=== PATIENT | male | born 1945 | race Caucasian/White ===

== ENCOUNTER 2020-03-22 15:27 | Inpatient (IN) ==
[2020-03-22] MEDS ORDERED: PROMETHAZINE 25 MG/1 ML VIAL IM PRN (15:34)
[2020-03-22] MEDS ORDERED: ONDANSETRON 4 MG/2 ML VIAL IV PRN (15:34)
[2020-03-22] MEDS ORDERED: ACETAMINOPHEN 325 MG TABLET PO SCH (16:00)
[2020-03-22] MEDS: SODIUM CHLORIDE 0.9% 1,000 ML IV SCH (17:24)
[2020-03-22] MEDS: ACETAMINOPHEN 325 MG TABLET PO SCH (17:26)
[2020-03-22] MEDS: HYOSCYAMINE 0.125 MG TABLET PO SCH (20:57)
[2020-03-22] MEDS: PIPERACILLIN/TAZOBACTAM 3,375 MG in SODIUM CHLORIDE 0.9% 100 ML IV SCH (20:57)
[2020-03-22] MEDS: RIVAROXABAN 10 MG TABLET PO SCH (20:57)
[2020-03-22] MEDS: DOCUSATE SODIUM 100 MG CAPSULE PO SCH (20:58)
[2020-03-22] MEDS: TAMSULOSIN 0.4 MG CAPSULE PO SCH (20:58)
[2020-03-22] MEDS: GABAPENTIN 600 MG TABLET PO SCH (20:58)
[2020-03-22] MEDS: PHENAZOPYRIDINE 95 MG TABLET PO SCH (21:04)
[2020-03-23] MEDS: ACETAMINOPHEN 325 MG TABLET PO SCH ×4 (01:45→19:08)
[2020-03-23] MEDS: HYOSCYAMINE 0.125 MG TABLET PO SCH ×5 (03:52→23:10)
[2020-03-23] MEDS: PIPERACILLIN/TAZOBACTAM 3,375 MG in SODIUM CHLORIDE 0.9% 100 ML IV SCH ×3 (04:58→20:41)
[2020-03-23 06:10] LABS: Basophils % 0.2 % (0.0-0.8); Hematocrit 34.9 VOL% (42.0-52.0); Hemoglobin 12.4 GM/DL (14.0-18.0); Immature Granulocytes % 1.5 %; Immature Granulocytes Absolute 0.22 #; Lymphocytes # 1.4 10*3/uL (1.4-4.0); Lymphocytes % 9.1 % (21.2-54.2); Mean Corpuscular HGB Conc 35.5 GM/DL (32-36); Mean Corpuscular Volume 89.7 FL (87-102); Mean Platelet Volume 8.3 FL (9.6-12.0); Monocytes % 5.5 % (1.7-12.7); Neutrophils % 83.7 % (38.7-73.9); Platelet Count 236 T/CUMM (130-400); Red Blood Count 3.89 MC/CUMM (3.8-5.5); Red Cell Distribution Width 11.6 % (9.3-17.3)
[2020-03-23 06:31] LABS: Calcium 8.9 MG/DL (8.5-10.1); Osmolality,Calculated 260.7 MOS/KG (273-304)
[2020-03-23] MEDS: SODIUM CHLORIDE 0.9% 1,000 ML IV SCH ×2 (07:27→19:08)
[2020-03-23] MEDS ORDERED: TAMSULOSIN 0.4 MG CAPSULE PO SCH (09:00)
[2020-03-23] MEDS: PHENAZOPYRIDINE 95 MG TABLET PO SCH ×2 (10:06→18:10)
[2020-03-23] MEDS: LEVOFLOXACIN 500 MG TABLET PO SCH (10:07)
[2020-03-23] MEDS: TAMSULOSIN 0.4 MG CAPSULE PO SCH ×2 (10:07→20:42)
[2020-03-23] MEDS: PANTOPRAZOLE 40 MG TABLET PO SCH (10:07)
[2020-03-23] MEDS: DOCUSATE SODIUM 100 MG CAPSULE PO SCH ×2 (10:08→20:41)
[2020-03-23] MEDS: GABAPENTIN 600 MG TABLET PO SCH ×2 (10:09→20:41)
[2020-03-23] MEDS: RIVAROXABAN 10 MG TABLET PO SCH (20:41)
[2020-03-23] MEDS: LACTOBACILLUS ACIDOPHILUS/BULGARICUS CAPLET PO SCH (20:41)
[2020-03-24] MEDS: ACETAMINOPHEN 325 MG TABLET PO SCH ×4 (01:25→18:33)
[2020-03-24] MEDS: HYOSCYAMINE 0.125 MG TABLET PO SCH ×4 (05:29→21:47)
[2020-03-24] MEDS: PIPERACILLIN/TAZOBACTAM 3,375 MG in SODIUM CHLORIDE 0.9% 100 ML IV SCH ×3 (05:30→21:38)
[2020-03-24 06:02] LABS: Basophils # 0.1 10*3/uL (0.0-0.2); Basophils % 0.3 % (0.0-0.8); Eosinophils # 0.1 10*3/uL (0.0-0.87); Eosinophils % 0.7 % (0.00-10.9); Hematocrit 32.4 VOL% (42.0-52.0); Hemoglobin 11.3 GM/DL (14.0-18.0); Immature Granulocytes % 1.7 %; Immature Granulocytes Absolute 0.28 #; Lymphocytes # 1.5 10*3/uL (1.4-4.0); Lymphocytes % 9.3 % (21.2-54.2); Mean Corpuscular HGB Conc 34.9 GM/DL (32-36); Mean Corpuscular Volume 90.5 FL (87-102); Mean Platelet Volume 8.2 FL (9.6-12.0); Monocytes % 5.9 % (1.7-12.7); Neutrophils % 82.1 % (38.7-73.9); Platelet Count 223 T/CUMM (130-400); Red Blood Count 3.58 MC/CUMM (3.8-5.5); Red Cell Distribution Width 11.5 % (9.3-17.3); White Blood Count 16.1 T/CUMM (4-12)
[2020-03-24 06:42] LABS: Albumin 2.6 G/DL (3.4-5.0); Calcium 8.9 MG/DL (8.5-10.1); Osmolality,Calculated 257.8 MOS/KG (273-304); Total Protein 6.3 G/DL (6.4-8.3)
[2020-03-24] MEDS: PANTOPRAZOLE 40 MG TABLET PO SCH (09:39)
[2020-03-24] MEDS: GABAPENTIN 600 MG TABLET PO SCH ×2 (09:39→21:38)
[2020-03-24] MEDS: LEVOFLOXACIN 500 MG TABLET PO SCH (09:39)
[2020-03-24] MEDS: PHENAZOPYRIDINE 95 MG TABLET PO SCH ×2 (09:39→16:51)
[2020-03-24] MEDS: LACTOBACILLUS ACIDOPHILUS/BULGARICUS CAPLET PO SCH ×2 (09:39→21:38)
[2020-03-24] MEDS: TAMSULOSIN 0.4 MG CAPSULE PO SCH ×2 (09:39→21:38)
[2020-03-24] MEDS: DOCUSATE SODIUM 100 MG CAPSULE PO SCH ×2 (09:40→21:38)
[2020-03-24] MEDS: SODIUM CHLORIDE 0.9% 1,000 ML IV SCH ×2 (11:04→21:47)
[2020-03-24] MEDS: RIVAROXABAN 10 MG TABLET PO SCH (21:38)
[2020-03-25] MEDS: ACETAMINOPHEN 325 MG TABLET PO SCH ×4 (01:05→20:14)
[2020-03-25] MEDS: HYOSCYAMINE 0.125 MG TABLET PO SCH ×4 (03:49→21:49)
[2020-03-25] MEDS: PIPERACILLIN/TAZOBACTAM 3,375 MG in SODIUM CHLORIDE 0.9% 100 ML IV SCH (04:51)
[2020-03-25 06:08] LABS: Basophils % 0.4 % (0.0-0.8); Eosinophils # 0.1 10*3/uL (0.0-0.87); Eosinophils % 1.1 % (0.00-10.9); Hematocrit 31.3 VOL% (42.0-52.0); Hemoglobin 10.9 GM/DL (14.0-18.0); Immature Granulocytes % 0.5 %; Immature Granulocytes Absolute 0.05 #; Lymphocytes # 1.1 10*3/uL (1.4-4.0); Lymphocytes % 10.4 % (21.2-54.2); Mean Corpuscular HGB Conc 34.8 GM/DL (32-36); Mean Corpuscular Volume 90.5 FL (87-102); Mean Platelet Volume 8.3 FL (9.6-12.0); Monocytes % 5.3 % (1.7-12.7); Neutrophils % 82.3 % (38.7-73.9); Platelet Count 234 T/CUMM (130-400); Red Blood Count 3.46 MC/CUMM (3.8-5.5); Red Cell Distribution Width 11.8 % (9.3-17.3); White Blood Count 10.5 T/CUMM (4-12)
[2020-03-25 06:24] LABS: % Iron Saturation 9.5 % (18-50)
[2020-03-25 06:35] LABS: Albumin 2.5 G/DL (3.4-5.0); Bilirubin,Total 0.9 MG/DL (0.2-1.0); Calcium 8.7 MG/DL (8.5-10.1); Osmolality,Calculated 270.8 MOS/KG (273-304); Total Protein 6.2 G/DL (6.4-8.3)
[2020-03-25 06:55] LABS: Folate 23.2 NG/ML (5.4-24.0)
[2020-03-25] MEDS ORDERED: IRON SUCROSE 300 MG in SODIUM CHLORIDE 0.9% 100 ML IV ONE (08:00)
[2020-03-25] MEDS: GABAPENTIN 600 MG TABLET PO SCH ×2 (08:36→20:14)
[2020-03-25] MEDS: LACTOBACILLUS ACIDOPHILUS/BULGARICUS CAPLET PO SCH ×2 (08:36→20:14)
[2020-03-25] MEDS: PHENAZOPYRIDINE 95 MG TABLET PO SCH ×2 (08:36→16:26)
[2020-03-25] MEDS: LEVOFLOXACIN 500 MG TABLET PO SCH (08:36)
[2020-03-25] MEDS: TAMSULOSIN 0.4 MG CAPSULE PO SCH ×2 (08:36→20:14)
[2020-03-25] MEDS: FERROUS SULFATE 325 MG TABLET PO SCH ×2 (08:36→20:14)
[2020-03-25] MEDS: PANTOPRAZOLE 40 MG TABLET PO SCH (08:36)
[2020-03-25] MEDS: DOCUSATE SODIUM 100 MG CAPSULE PO SCH ×2 (08:36→20:14)
[2020-03-25] MEDS: SODIUM CHLORIDE 0.9% 1,000 ML IV SCH (13:49)
[2020-03-25] MEDS: RIVAROXABAN 10 MG TABLET PO SCH (20:14)
[2020-03-26] MEDS: ACETAMINOPHEN 325 MG TABLET PO SCH ×2 (01:01→09:30)
[2020-03-26] MEDS: HYOSCYAMINE 0.125 MG TABLET PO SCH ×2 (04:33→11:46)
[2020-03-26 05:25] LABS: Basophils # 0.1 10*3/uL (0.0-0.2); Basophils % 0.8 % (0.0-0.8); Eosinophils # 0.2 10*3/uL (0.0-0.87); Eosinophils % 3.4 % (0.00-10.9); Hematocrit 32.1 VOL% (42.0-52.0); Hemoglobin 11.1 GM/DL (14.0-18.0); Immature Granulocytes % 0.5 %; Immature Granulocytes Absolute 0.03 #; Lymphocytes # 1.2 10*3/uL (1.4-4.0); Lymphocytes % 18.3 % (21.2-54.2); Mean Corpuscular HGB Conc 34.6 GM/DL (32-36); Mean Corpuscular Volume 91.2 FL (87-102); Mean Platelet Volume 8.4 FL (9.6-12.0); Monocytes % 6.6 % (1.7-12.7); Neutrophils % 70.4 % (38.7-73.9); Platelet Count 282 T/CUMM (130-400); Red Blood Count 3.52 MC/CUMM (3.8-5.5); Red Cell Distribution Width 11.8 % (9.3-17.3); White Blood Count 6.5 T/CUMM (4-12)
[2020-03-26 05:47] LABS: Albumin 2.5 G/DL (3.4-5.0); Bilirubin,Total 0.4 MG/DL (0.2-1.0); Calcium 8.8 MG/DL (8.5-10.1); Osmolality,Calculated 272.7 MOS/KG (273-304); Total Protein 6.6 G/DL (6.4-8.3)
[2020-03-26] MEDS: FERROUS SULFATE 325 MG TABLET PO SCH (09:31)
[2020-03-26] MEDS: LACTOBACILLUS ACIDOPHILUS/BULGARICUS CAPLET PO SCH (09:31)
[2020-03-26] MEDS: PHENAZOPYRIDINE 95 MG TABLET PO SCH (09:31)
[2020-03-26] MEDS: GABAPENTIN 600 MG TABLET PO SCH (09:32)
[2020-03-26] MEDS: LEVOFLOXACIN 500 MG TABLET PO SCH (09:32)
[2020-03-26] MEDS: TAMSULOSIN 0.4 MG CAPSULE PO SCH (09:32)
[2020-03-26] MEDS: PANTOPRAZOLE 40 MG TABLET PO SCH (09:32)
[2020-03-26] MEDS: DOCUSATE SODIUM 100 MG CAPSULE PO SCH (09:46)
[2020-03-26 11:45] VITALS: BP 129/62
== END 2020-03-26 11:54 | disposition home or self-care (01) | DRG 690 ==
LOC: N.3E 16:15 → INTOOBSV 16:15
PROVIDERS: ADMIT Surgery; ATTEND Surgery